=== PATIENT | male | born 1990 | race Caucasian/White ===

== ENCOUNTER → 2018-06-04 | Outpatient (REF) ==
--- NOTE | 2018-06-04 15:20 | REP ---
LEFT SHOULDER, THREE VIEWS: HISTORY: Degenerative joint disease. There is no acute fracture or dislocation. The joint spaces are normal in appearance. IMPRESSION: There is no acute fracture or dislocation. Unreviewed
== END ==
LOC: M SMT 13:33
PROVIDERS: ATTEND Internal Medicine
DX: Z00.00 Encounter for general adult medical examination without abnormal findings (principal)